=== PATIENT | female | born 1935 | race Caucasian/White ===

== ENCOUNTER 2019-06-17 22:52 | Inpatient (IN) | payer MEDICARE, OTHER ==
[~2019-06-17] VITALS: Ht 170.2 cm; Wt 72.6 kg
[2019-06-17 23:25] LABS: BASOPHILS 0.2 % (0-2); EOSINOPHILS 0 % (0-7); HEMOGLOBIN 13.1 g/dL (12-16); IMMATURE GRANULOCYTES 0.2 % (0-5); LYMPHOCYTES 9.9 % (15-50); MCH 31.5 pg (26.0-34.0); MCHC 33.6 g/dL (31.0-37.0); MCV 93.8 fL (80.0-100.0); MEAN PLATELET VOLUME 8.8 fL (7.4-10.4); MONOCYTES 5.6 % (2-11); NEUTROPHILS 84.1 % (40-80); PLATELET COUNT 201 10x3/uL (130-400); RBC 4.16 10x6/uL (4.00-5.40); RDW 13.5 % (11.5-14.5); WBC 9.2 10x3/uL (4.8-10.8)
[2019-06-17 23:35] LABS: APTT 28.9 SECONDS (22.8-39.4); INR 1.08 (0.85-1.17); PROTIME 13.5 SECONDS (11.6-15.0)
[2019-06-17 23:39] LABS: ALBUMIN 3.2 g/dL (3.4-5.0); BILIRUBIN - TOTAL 0.37 mg/dL (0.2-1.3); CALCIUM 8.9 mg/dL (8.5-10.1); CARBON DIOXIDE 26.4 mmol/L (21.0-32.0); CREATININE - SERUM 0.9 mg/dL (0.6-1.3); POTASSIUM - SERUM 4.4 mmol/L (3.5-5.1); PROTEIN - SERUM 7.5 g/dL (6.4-8.2)
[2019-06-17 23:48] LABS: THYROID STIMULATING HORMONE 0.99 uIU/mL (0.36-3.74); TROPONIN-I 0.022 ng/mL (0.000-0.060)
[2019-06-18] VITALS (7 sets, daily range): BP systolic 158–188; BP diastolic 50–77; BMI 25.1
--- NOTE | 2019-06-18 00:35 | NUR ---
ALERT AND ORIENTED. UP WITH ASSIST. STATES PAIN IS "MORE THAN OKAY" RIGHT NOW. DENIES NEEDS FOR PAIN MEDICINE. LEFT AC THAT HAS DRAINAGE TO DRESSING. FLUSHES WELL AND IS PATENT. DONIS CATHETER WITH DARK YELLOW URINE. CALL LIGHT IN REACH. CPOC.
--- NOTE | 2019-06-18 00:41 | NUR ---
ADMISSION ASSESSMENT COMPLETE.
[2019-06-18] MEDS ORDERED: PREMARIN0.625 MG PO (00:42)
[2019-06-18] MEDS ORDERED: ULTRAM50 MG PO (00:42)
[2019-06-18] MEDS ORDERED: ELIQUIS2.5 MG PO (00:43)
[2019-06-18] MEDS ORDERED: FUROSEMIDE40 MG PO (00:44)
[2019-06-18] MEDS ORDERED: TOPROL XL25 MG PO (00:44)
[2019-06-18] MEDS ORDERED: K-DUR20 MEQ PO (00:46)
[2019-06-18] MEDS ORDERED: BAYER ASPIRIN325 MG PO (00:47)
--- NOTE | 2019-06-18 07:56 | NUR ---
ALERT AND ORIENTED X4. BOWEL SOUNDS NOTED X4 WITH TENDERNESS NOTED TO EPIGASTRIC AREA ON PALPATION. DENIES ANY N/V AT THIS TIME. TELEMETRY INTACT AND HRRR. LUNGS CTA WITH CAP REFILL <3 SEC. FALL RISK PRECAUTIONS IN PLACE AND ENCOURAGED TO USE CALL LIGHT FOR ASSSIT
--- NOTE | 2019-06-18 19:15 | NUR ---
PATIENT ALERT AND ORIENTED WHEN ENTERING THE ROOM. STATES THAT HER IV IS BOTHERING HER. ON REDNESS OR SIGNS OF INFILTRATION NOTICED. GOOD BLOOD RETURN BUT PATIENT WANTS RESITED DUE TO DISCOMFORT. RESITED TO THE LEFT FOREARM X 1 ATTEMPT. 22G. RETURNED FLUIDS TO ORDERED RATE. PATIENT DENIES FURTHER NEEDS AT THIS TIME.
--- NOTE | 2019-06-18 21:40 | NUR ---
PATIENT REQUESTING PAIN MEDICINE. MORPHINE HAD BEEN DC'D EARLIER IN SHIFT BY DR. MONREAL. PAGED DR TO SEE IF PATIENT CAN HAVE ALTERNATIVE TO MORPHINE. DR. MONREAL STATED THAT IT WAS A MISTAKE AND TO RESTART THE PRIOR ORDER. ADMINISTERED MORPHINE. PATIENT TOLERATED WELL.
[2019-06-19] VITALS: BP 136/56
--- NOTE | 2019-06-19 01:35 | NUR ---
I have reviewed this patient and I concur with the Shift Assessment completed by the Licensed Practical Nurse today this shift.
[2019-06-19 04:00] VITALS: BP 129/45
--- NOTE | 2019-06-19 05:20 | NUR ---
KAYDEN WAIVER SIGNED
[2019-06-19 06:10] LABS: BASOPHILS 0.4 % (0-2); EOSINOPHILS 4.7 % (0-7); HEMATOCRIT 34.4 % (36.0-48.0); HEMOGLOBIN 11.2 g/dL (12-16); IMMATURE GRANULOCYTES 0.2 % (0-5); LYMPHOCYTES 32.9 % (15-50); MCH 30.9 pg (26.0-34.0); MCHC 32.6 g/dL (31.0-37.0); MEAN PLATELET VOLUME 8.9 fL (7.4-10.4); MONOCYTES 15.7 % (2-11); NEUTROPHILS 46.1 % (40-80); PLATELET COUNT 190 10x3/uL (130-400); RBC 3.62 10x6/uL (4.00-5.40); RDW 13.9 % (11.5-14.5)
[2019-06-19 06:22] LABS: INR 1.14 (0.85-1.17); PROTIME 14.1 SECONDS (11.6-15.0)
[2019-06-19 06:26] LABS: WBC 5.2 10x3/uL (4.8-10.8)
[2019-06-19 06:32] LABS: ALBUMIN 2.5 g/dL (3.4-5.0); ANION GAP 11.6 mmol/L (8-16); BILIRUBIN - TOTAL 0.35 mg/dL (0.2-1.3); CALCIUM 7.8 mg/dL (8.5-10.1); CARBON DIOXIDE 26.4 mmol/L (21.0-32.0); CREATININE - SERUM 0.8 mg/dL (0.6-1.3); MAGNESIUM - SERUM 1.8 mg/dL (1.8-2.4); PHOSPHOROUS 2.3 mg/dL (2.5-4.9); TROPONIN-I 0.06 ng/mL (0.000-0.060)
[2019-06-19 06:36] LABS: PROTEIN - SERUM 5.4 g/dL (6.4-8.2)
--- NOTE | 2019-06-19 07:28 | NUR ---
ALERT AND ORIENTED. LUNGS CLEAR BILATERALLY IN ALL MILLER. HEART SOUNDS S1 AND S2 HEARD IN ALL MILLER. BOWEL SOUNDS ACTIVE X 4. SKIN INTACT WITHOUT REDNESS. IV TO LFA PATENT WITHOUT REDNESS. DENIES PAIN. DENIES NEEDS. BED LOW. CALL HENDRICKS AND PERSONAL ITEMS IN REACH. SIGNED KAYDEN WAIVER. WILL CONTINUE TO MONITOR.
[2019-06-19 08:43] VITALS: BP 174/63
--- NOTE | 2019-06-19 10:23 | NUR ---
RESTING IN BED. DENIES NEEDS. WILL CONTINUE TO MONITOR.
[2019-06-19 11:53] VITALS: BP 175/74
--- NOTE | 2019-06-19 12:07 | NUR ---
EDUCATION PROVIDED ON NEED FOR URINE SAMPLE. SUPPLIES IN ROOM. VERBALIZED UNDERSTANDING.
--- NOTE | 2019-06-19 13:24 | NUR ---
RESTING IN BED. DENIES NEEDS. WILL CONTINUE TO MONITOR.
[2019-06-19 14:03] LABS: APPEARANCE CLEAR (CLEAR); BILIRUBIN NEGATIVE (NEGATIVE); COLOR STRAW (YELLOW); GLUCOSE NEGATIVE (NEGATIVE); KETONE NEGATIVE (NEGATIVE); NITRITE NEGATIVE (NEGATIVE); PROTEIN NEGATIVE (NEGATIVE); UROBILINOGEN NORMAL (NORMAL)
--- NOTE | 2019-06-19 14:11 | NUR ---
DR FLORES PLACED NEW ORDER FOR CELEBREX. PHARMACY CALLED TO NOTIFY NURSE THAT PATIENT ALLERGIC TO NSAIDS AND SULFA. GHULAM FISH NOTIFIED. CELEBREX HELD UNTIL FURTHER NOTICE PER GHULAM.
[2019-06-19 14:33] VITALS: BMI 25.0
[2019-06-19 15:16] VITALS: Ht 170.2 cm; Wt 72.6 kg
--- NOTE | 2019-06-19 16:36 | NUR ---
RESTING IN BED. DENIES NEEDS. WILL CONTINUE TO MONITOR.
[2019-06-19 16:55] VITALS: BP 164/77
--- NOTE | 2019-06-19 18:14 | NUR ---
RESTING IN BED. DENIES PAIN. DENIES NEEDS. BED LOW. CALL HENDRICKS AND PERSONAL ITEMS IN REACH. WILL CONTINUE TO MONITOR.
[2019-06-19 20:15] VITALS: BP 160/72
--- NOTE | 2019-06-19 22:45 | NUR ---
PT C/O PAIN IN HEAD, NECK, ABDOMEN, AND SHARP STABBING PAIN TO CHEST. STATES SHE'S HAVING AN ALLERGIC REACTION TO MEDICATION THAT MAY HAVE BEEN GIVEN EARLIER ON IN THE DAY.BP 188/72. OTHER VITALS ARE STABLE. REQUESTS TO TAKE HER HOME NITRO. RAPID CALLED.
--- NOTE | 2019-06-19 23:06 | NUR ---
7520-SPOKE WITH BERNICE GONZALEZ APN WITH ORDERS TO NOTIFY CARDIOLOGY. 0342-NOTIFIED CARDIOLOGY OF CARDIAC ENZYMES ORDER, EKG DONE, AND MORPHINE WAS GIVEN. DR. ORLANDO HAD NO NEW ORDERS AT THIS TIME. PT STATES THAT THE MORPHINE IS HELPING.
[2019-06-20 00:03] LABS: CKMB 0.7 U/L (0.0-3.6); CREATINE KINASE 95 UL (21-215); TROPONIN-I 0.019 ng/mL (0.000-0.060)
[2019-06-20 00:47] VITALS: BP 178/68
[2019-06-20 05:14] VITALS: BP 165/63
[2019-06-20 06:13] LABS: BASOPHILS 0.3 % (0-2); EOSINOPHILS 3.6 % (0-7); HEMOGLOBIN 11.9 g/dL (12-16); LYMPHOCYTES 26.6 % (15-50); MCH 31.1 pg (26.0-34.0); MCHC 33.1 g/dL (31.0-37.0); MEAN PLATELET VOLUME 8.9 fL (7.4-10.4); MONOCYTES 15.9 % (2-11); NEUTROPHILS 53.6 % (40-80); PLATELET COUNT 190 10x3/uL (130-400); RBC 3.83 10x6/uL (4.00-5.40); RDW 13.7 % (11.5-14.5)
[2019-06-20 06:24] LABS: WBC 6.7 10x3/uL (4.8-10.8)
--- NOTE | 2019-06-20 06:38 | NUR ---
I have reviewed this patient and I concur with the Shift Assessment completed by the Licensed Practical Nurse today this shift.
[2019-06-20 07:19] LABS: CALC OSMOLALITY 283 mosm/kg (275-300); CALCIUM 7.9 mg/dL (8.5-10.1); CHLORIDE - SERUM 108 mmol/L (98-107); CKMB 0.9 U/L (0.0-3.6); CREATINE KINASE 94 UL (21-215); CREATININE - SERUM 0.7 mg/dL (0.6-1.3); GLUCOSE 95 mg/dL (74-106); POTASSIUM - SERUM 4.2 mmol/L (3.5-5.1); SODIUM 143 mmol/L (136-145); UREA NITROGEN 9 mg/dL (7-18); eGFR NON AFRICAN AMERICAN 85 mL/min (90-120)
[2019-06-20 07:21] LABS: TROPONIN-I < 0.017 ng/mL (0.000-0.060)
--- NOTE | 2019-06-20 07:44 | NUR ---
ALERT AND ORIENTED. LUNGS CLEAR BILATERALLY. HEART SOUNDS S1 AND S2 HEARD IN ALL MILLER. BOWEL SOUNDS ACTIVE X 4. SKIN INTACT WITHOUT REDNESS. IV TO LFA PATENT WITHOUT REDNESS. SPOKE WITH GHULAM FISH ABOUT D/C PATIENT'S FLUIDS D/T SWELLING AND CONTINUING PATIENT HOME BP MEDICATIONS. FLUIDS DC'D PER ORDER AND HOME BP MED ADDED TO MAR. PATIENT DENIES NEEDS AT THIS TIME. BED LOW. CALL HENDRICKS AND PERSONAL ITEMS IN REACH. WILL CONTINUE TO MONITOR.
[2019-06-20 08:37] VITALS: BP 199/76
--- NOTE | 2019-06-20 09:16 | NUR ---
BP 199/76. PAIN LEVEL 8/10. PRN MORPHINE GIVEN. BP MEDICATION GIVEN. WILL REASSESS BP.
--- NOTE | 2019-06-20 09:30 | NUR ---
EGG CRATE MATTRESS TOPPER PLACED ON BED AND WARM PACK GIVEN FOR NECK AND BACK PAIN. DENIES NEEDS.
--- NOTE | 2019-06-20 10:10 | MORECARE ---
CASE MANAGEMENT DISCHARGE SUMMARY PATIENT: KIRSTY RODRÍGUEZ UNIT: [id number] ADM DATE: 06/17/19 AGE: 83 : 36 SEX: F ROOM/BED: D.2225 AUTHOR: ELENA MALIK PHYSICIAN: REFERRING PHYSICIAN: RENEE MONREAL MD DATE OF SERVICE: 06/20/19 Discharge Plan Patient Name: KIRSTY RODRÍGUEZ [facility] : 1935 Planned Disposition: Home Anticipated Discharge Date: 06/21/19 Discharge Date: Expected LOS: 4 Initial Reviewer: [email or web address] Initial Review Date: 06/20/2019 Generated: 06/20/19 11:09 am Patient Name: KIRSTY RODRÍGUEZ Page [id number] at 1010 All edits/amendments must be made on the electronic document DICTATION DATE: 06/20/19 1009 LYE BATH OPERATOR: MASSIEL 06/20/19 1009 RPT#: [id number] DC DATE: STATUS: ADM IN [facility] [address] [place] [address] END OF REPORT
--- NOTE | 2019-06-20 10:17 | MORECARE ---
CASE MANAGEMENT DISCHARGE SUMMARY PATIENT: KIRSTY NOGUEIRA UNIT: [id number] ADM DATE: 06/17/19 AGE: 83 : 36 SEX: F ROOM/BED: D.2225 AUTHOR: HELENA,DOC PHYSICIAN: REFERRING PHYSICIAN: RENEE MONREAL MD DATE OF SERVICE: 06/20/19 Discharge Plan Patient Name: KIRSTY NOGUEIRA Facility: [facility]:[place] : 1935 Planned Disposition: Home Anticipated Discharge Date: 06/21/19 Discharge Date: Expected LOS: 4 Initial Reviewer: [email or web address] Initial Review Date: 06/20/2019 Generated: 06/20/19 11:17 am Comments DCP- Discharge Planning Updated by [email or web address]: Jeanne Leblanc on 06/20/19 9:[address] Patient Name: KIRSTY NOGUEIRA Admission Status: ER Accout number: [id number] Admission Date: 06-17-2019 : 1935 Admission Diagnosis: Attending: RENEE MONREAL Current LOS: 3 Anticipated DC Date: 06-21-2019 Planned Disposition: Home Primary Insurance: MEDICARE A & B Discharge Planning Comments: CM met with patient to complete initial dc planning assessment. CM educated patient on the CM role and verbal consent given by patient to complete assessment. Patient lives at home with her daughter. She states she is independent with all ADL's and AIDL's. At discharge patient plans to return and feels this is a safe discharge. CM discussed availability of home health, rehab services, and medical equipment. Patient denied known discharge needs at this time. CM will continue to follow and will assist as needed with dc plans/needs. [employer] Operations Consultant: Jeanne Leblanc DCPIA - Discharge Planning Initial Assessment Updated by [email or web address]: Jeanne Leblanc on 06/20/19 10:10 am * Is the patient Alert and Oriented? Yes * How many steps to enter\exit or inside your home? 3/0 * PCP Dr. Gomes * Pharmacy [facility] in [place] * Preadmission Environment Acute Care Facility * Facility Name [facility] * ADLs Independent * Equipment None * List name and contact numbers for known caregivers / representatives who currently or will assist patient after discharge: Toro Nogueira - DTR - H [phone] C [phone] * Verbal permission to speak to the caregivers and representatives has been obtained from the patient. Yes * Community resources currently utilized None * Additional services required to return to the preadmission environment? No * Can the patient safely return to the preadmission environment? Yes * Has this patient been hospitalized within the prior 30 days at any hospital? No Coverage Notice Reviewer: [id number] Terra Leblanc Notice Issued Date-Time: 06/20/2019 10:11 Notice Type: IM Discharge Notice Notice Delivered To: Patient Relationship to Patient: Self Antisqueak Filler Name: Delivery Method: HAND - Hand Delivered Senia Days: Prior Verbal Notification: Recipient Understood Notice: Yes Recipient Signature: Yes Med Rec Note Co-signed by Attending: Coverage Notice Comment: IMM explained, signed, given, copy placed in MR Last DP export: 06/20/19 9:10 a Patient Name: KIRSTY NOGUEIRA Page [phone] at 1017 All edits/amendments must be made on the electronic document DICTATION DATE: 06/20/19 1016 SPORTS NUTRITIONIST: DM 06/20/19 1016 RPT#: [id number] DC DATE: STATUS: ADM IN [facility] [address] [place] [address] END OF REPORT
[2019-06-20 11:41] VITALS: BP 182/82
--- NOTE | 2019-06-20 11:41 | NUR ---
BP 166/57 AFTER PRN CLONIDINE.
[2019-06-20 11:55] LABS: CKMB 1.1 U/L (0.0-3.6); CREATINE KINASE 102 UL (21-215)
[2019-06-20 11:57] LABS: TROPONIN-I < 0.017 ng/mL (0.000-0.060)
--- NOTE | 2019-06-20 12:17 | NUR ---
RESTING IN BED. DENIES NEEDS. WILL CONTINUE TO MONITOR.
[2019-06-20 15:40] VITALS: BP 184/78
--- NOTE | 2019-06-20 15:57 | NUR ---
PATIENT BP 184/76. WILL GIVE PRN CLONIDINE.
--- NOTE | 2019-06-20 16:41 | NUR ---
BP 172/75 AFTER PRN CLONIDINE. WILL REASSESS IN 30 MINUTES.
--- NOTE | 2019-06-20 18:00 | NUR ---
PATIENT STATES ALLERGIC TO LISINOPRIL AND NORVASC. STATES GETS NAUSEAS AND HEADACHES. DR RAH JACKMAN. WAITING CALL BACK. MEDS HELD.
--- NOTE | 2019-06-20 18:22 | NUR ---
SPOKE WITH DR FLORES IN ROOM WITH PATIENT. STATED DC LISINOPRIL AND NORVASC. N/O FOR HYDRALAZINE 50MG TID.
--- NOTE | 2019-06-20 20:00 | NUR ---
ASSESSMENT PER FLOWSHEET. SALINE LOCK TO LEFT FOREARM. SITE CLEAR. TELM. SR W/HR 76-80.
[2019-06-20 20:43] VITALS: BP 161/47
--- NOTE | 2019-06-20 21:00 | NUR ---
MEDS GIVEN PER MAR.
--- NOTE | 2019-06-21 | NUR ---
EYES CLOSED RESPIRATIONS WITH EASE AND UNLABORED.
--- NOTE | 2019-06-21 00:30 | NUR ---
AWAKE WALKING AROUND IN ROOM REQUESTING IV BE REMOVED BECAUSE SHE IS GOING HOME. ATTEMPT TO REORIENT PATIENT AND SHE BECAME VERBALLY ABUSIVE. ATTEMPT TO CALL HER DAUGHTER FROM PHONE NUMBER GIVEN ON FACE SHEET. WRONG NUMBER. LOOKED UP PT'S DAUGHTER ON HER PHONE AND SHE HAD ALREADY CALLED HER. DAUGHTER STATED SHE WAS NOT GOING TO TELECOMMUNICATIONS PROJECT MANAGER AND TO WAIT UNTIL TOMORROW.
[2019-06-21 01:15] VITALS: BP 132/54
--- NOTE | 2019-06-21 02:47 | NUR ---
RESTING IN BED SR UP X2 CALL LIGHT WITHIN REACH PT CALMIER AT THIS TIME.
[2019-06-21 05:02] VITALS: BP 174/60
[2019-06-21 06:16] LABS: BASOPHILS 0.1 % (0-2); EOSINOPHILS 0.6 % (0-7); HEMATOCRIT 35.3 % (36.0-48.0); HEMOGLOBIN 11.8 g/dL (12-16); IMMATURE GRANULOCYTES 0.2 % (0-5); LYMPHOCYTES 17.7 % (15-50); MCH 30.7 pg (26.0-34.0); MCHC 33.4 g/dL (31.0-37.0); MEAN PLATELET VOLUME 8.9 fL (7.4-10.4); MONOCYTES 14.9 % (2-11); NEUTROPHILS 66.5 % (40-80); PLATELET COUNT 189 10x3/uL (130-400); RBC 3.84 10x6/uL (4.00-5.40); RDW 13.3 % (11.5-14.5)
[2019-06-21 06:44] LABS: CALC OSMOLALITY 284 mosm/kg (275-300); CALCIUM 8.5 mg/dL (8.5-10.1); CARBON DIOXIDE 28.9 mmol/L (21.0-32.0); CHLORIDE - SERUM 106 mmol/L (98-107); CREATININE - SERUM 0.7 mg/dL (0.6-1.3); GLUCOSE 126 mg/dL (74-106); POTASSIUM - SERUM 3.9 mmol/L (3.5-5.1); SODIUM 143 mmol/L (136-145); UREA NITROGEN 8 mg/dL (7-18); eGFR NON AFRICAN AMERICAN 85 mL/min (90-120)
[2019-06-21 06:45] LABS: MCV 91.9 fL (80.0-100.0); WBC 8.7 10x3/uL (4.8-10.8)
[2019-06-21 08:17] VITALS: BP 165/59
--- NOTE | 2019-06-21 11:08 | EC ---
PATIENT:KIRSTY RODRÍGUEZ DATE OF SERVICE: 06/17/19 SEX: F MEDICAL RECORD: [id number] DATE OF : 37 LOCATION:D.MS Kim222 AGE OF PATIENT: 83 ADMISSION DATE: 06/17/19 REFERRING PHYSICIAN: INTERPRETING PHYSICIAN: ALAN VÁSQUEZ MD ECHOCARDIOGRAM REPORT ECHO CHARGES 4 ECHO COMPLETE Date: 06/19/19 CLINICAL DIAGNOSIS: CHF ECHOCARDIOGRAPHIC MEASUREMENTS (adult normal given) AC root (d.<3.7cm) 2.9 cm LV Septum d (<1.2 cm> 1.0 cm Valve Excursion 1.6 cm LV Septum (systole) 1.4 cm Left Atria (s.<4.0cm> 3.9 cm LVPW d(<1.2cm) 0.9 cm RV (d.<2.3cm) 3.3 cm LVPW (sytole) 1.1 cm LV diastole(<5.6CM) 4.6 cm MV E-F(>70mm/sec) cm LV systole 3.2 cm LVOT Diameter 1.7 cm MV exc.(>10mm) cm Est.ejection fraction (50-75%) % DOPPLER: LVIT cm/sec A 82 cm/sec E 111 cm/sec LA cm/sec RVSP 49.1 mmHg LVOT 92 cm/sec AOP1/2T m/s Asc. Ao 146 cm/sec RVOT 69 cm/sec RA cm/sec PA 79 cm/sec AV Gradient Peak 8.6 mmHg AV Mean 4.1 mmHg AV Area 1.6 cm MV Gradient Peak 6.4 mmHg MV Mean 3.0 mmHg MV Area cm COMMENTS: School Psychology Professor: Huber SORTO Director Agricultural Services: 3 Dr. Carrero TAPE# PACS Pericardial Effusion N DATE OF SERVICE: 06/20/2019 Adequate 2-D echo, color-flow and spectral Doppler, and M-mode. No LVH. LV internal dimensions are normal. Wall motion is normal. EF is greater than 55%. Aortic valve is tricuspid. No evidence of stenosis by Doppler interrogation. Left atrium is normal. Mitral valve shows no prolapse. Trace MR. Right-sided chambers grossly normal. Trace TR. TRANSINT:[id number] Voice Confirmation ID: [id number] DOCUMENT ID: [id number] ECHOCARDIOGRAM REPORT [id number] KIRSTY RODRÍGUEZ ALAN VÁSQUEZ MD at 1108 CC: [id number] DICTATION DATE: 06/20/19 1444 YARD SUPERVISOR: 06/21/19 0010 ADM IN [place] [address] [place] [address]
[2019-06-21] MEDS ORDERED: HYDRALAZINE HCL50 MG PO (11:55)
[2019-06-21 12:03] VITALS: BP 124/60
--- NOTE | 2019-06-21 12:28 | NUR ---
PT RESTING IN BED. NO SIGNS OF DISTRESS. ON TELEMETRY 61 SR. COMPLAINS OF PAIN IN NECK AND HEAD. MEDICATIONS GIVEN. DENIES ANY FURTHER NEED AT THIS TIME. CALL LIGHT IN REACH. BED LOW POSITION. NO FAMILY AT BEDSIDE AT THIS TIME.
--- NOTE | 2019-06-21 12:55 | MORECARE ---
CASE MANAGEMENT DISCHARGE SUMMARY PATIENT: KIRSTY NOGUEIRA UNIT: [id number] ADM DATE: 06/17/19 AGE: 83 : 36 SEX: F ROOM/BED: D.2225 AUTHOR: ELENA MALIK PHYSICIAN: REFERRING PHYSICIAN: RENEE MONREAL MD DATE OF SERVICE: 06/21/19 Discharge Plan Patient Name: KIRSTY NOGUEIRA Facility: [facility]:[place] : 1935 Planned Disposition: Home Anticipated Discharge Date: 06/21/19 Discharge Date: Expected LOS: 4 Initial Reviewer: [email or web address] Initial Review Date: 06/20/2019 Generated: 06/21/19 1:54 pm Comments DCP- Discharge Planning Updated by [email or web address]: Jeanne Leblanc on 06/21/19 11:[address] Patient Name: KIRSTY NOGUEIRA Encounter No: [id number] : 1935 Primary Insurance: MEDICARE A & B Anticipated DC Date: 06-21-2019 Planned Disposition: Home External Planned Provider: : DCP follow-up note: Patient and family in agreement with discharge plan. No changes to plan. She refuses home health for PT or OT. States she has a messager and bio freeze at the home. I instructed her if she changed her mind to notify her primary care doctor. States her daughter is on her way to take her home. Case management will follow and assist as needed. Jeanne Leblanc DCP- Discharge Planning Updated by [email or web address]: Jeanne Leblanc on 06/20/19 9:[address] Patient Name: KIRSTY NOGUEIRA Admission Status: ER Accout number: [id number] Admission Date: 06-17-2019 : 1935 Admission Diagnosis: Attending: RENEE MONREAL Current LOS: 3 Anticipated DC Date: 06-21-2019 Planned Disposition: Home Primary Insurance: MEDICARE A & B Discharge Planning Comments: CM met with patient to complete initial dc planning assessment. CM educated patient on the CM role and verbal consent given by patient to complete assessment. Patient lives at home with her daughter. She states she is independent with all ADL's and AIDL's. At discharge patient plans to return and feels this is a safe discharge. CM discussed availability of home health, rehab services, and medical equipment. Patient denied known discharge needs at this time. CM will continue to follow and will assist as needed with dc plans/needs. College Basketball Coach: Jeanne Benji DCPIA - Discharge Planning Initial Assessment Updated by [email or web address]: Jeanne Leblanc on 06/20/19 10:10 am * Is the patient Alert and Oriented? Yes * How many steps to enter\exit or inside your home? 3/0 * PCP Dr. Gomes * Pharmacy [facility] in [place] * Preadmission Environment Acute Care Facility * Facility Name [facility] * ADLs Independent * Equipment None * List name and contact numbers for known caregivers / representatives who currently or will assist patient after discharge: Toro Nogueira - DTR - H [phone] C [phone] * Verbal permission to speak to the caregivers and representatives has been obtained from the patient. Yes * Community resources currently utilized None * Additional services required to return to the preadmission environment? No * Can the patient safely return to the preadmission environment? Yes * Has this patient been hospitalized within the prior 30 days at any hospital? No Coverage Notice Reviewer: [id number] Terra Leblanc Notice Issued Date-Time: 06/20/2019 10:11 Notice Type: IM Discharge Notice Notice Delivered To: Patient Relationship to Patient: Self Computer Forensics Examiner Name: Delivery Method: HAND - Hand Delivered Senia Days: Prior Verbal Notification: Recipient Understood Notice: Yes Recipient Signature: Yes Med Rec Note Co-signed by Attending: Coverage Notice Comment: IMM explained, signed, given, copy placed in MR Reviewer: [id number] Terra Leblanc Notice Issued Date-Time: 06/21/2019 12:44 Notice Type: Patient Choice Letter Notice Delivered To: Patient Relationship to Patient: Self Computer Forensics Examiner Name: Delivery Method: HAND - Hand Delivered Senia Days: Prior Verbal Notification: Recipient Understood Notice: Yes Recipient Signature: Yes Med Rec Note Co-signed by Attending: Coverage Notice Comment: Refused home health or OP PT OT Last DP export: 06/20/19 9:17 a Patient Name: KIRSTY NOGUEIRA Page 33495 at 1255 All edits/amendments must be made on the electronic document DICTATION DATE: 06/21/19 1640 HEAD PAPER TESTER: DM 06/21/19 1254 RPT#: [id number] DC DATE: STATUS: ADM IN [facility] [address] [place] [address] END OF REPORT
--- NOTE | 2019-06-21 14:08 | NUR ---
DISCHARGE INSTRUCTIONS GIVEN. SEEMS TO UNDERSTAND INSTRUCTIONS. IV ALREADY OUT. TELEMETRY OFF AND RETURNED. LEFT WITH HOSPITAL STAFF TO GO HOME IN PERSONAL RIDE WITH FAMILY. NO SIGNS OF DISTRESS.
--- NOTE | 2019-06-22 18:23 | DS ---
PATIENT:KIRSTY RODRÍGUEZ :37 MEDICAL RECORD: [id number] DISCHARGE SUMMARY ADMISSION DATE: 06/17/19 DISCHARGE DATE: 06/21/19 PRINCIPAL DIAGNOSES: 1. Splenic infarction 2. Anemia. OTHER DIAGNOSES: Include hypertension, coronary artery disease, hyperlipidemia, arthritis, history of CABG, atrial fibrillation, hypercholesterolemia. The patient reportedly was recently diagnosed with atrial fibrillation per Holter monitor or by Dr. Gomes. Anyhow, she may have had an embolism to the splenic artery. The patient was transferred from [place]. She was transferred here. Seen by the hospitalist service as well as the cardiology service. Dismissed home on anticoagulation. HOSPITAL COURSE: My plan was to treat her pain from the splenic infarction with a narcotic analgesia as well as anti-inflammatories. Reportedly, the patient had a Holter monitor placed by her primary care physician recently and it revealed atrial fibrillation, although we did not have any of the strips to confirm this here at the hospital. In the hospital, she was in a sinus rhythm with a first-degree AV block. She was complaining of terrible neck pain as well as the worst headache of her life. This revealed mild multilevel cervical spondylosis with facet arthrosis and also mild degenerative grade I anterolisthesis of C3 on C4. CT of the head was performed due to the worst headache of her life and it revealed mild chronic microvascular ischemic changes. The patient can see me on a p.r.n. basis. TRANSINT:[id number] Voice Confirmation ID: [id number] DOCUMENT ID: [id number] RENEE MONREAL MD at 1823 CC: [id number] DICTATION DATE: 06/21/191699 PLATE STACKER HAND: 06/22/1957 DIS IN 06/21/[address] [facility] [address] [place] [id number]
--- NOTE | 2019-06-23 16:37 | MORECARE ---
CASE MANAGEMENT DISCHARGE SUMMARY PATIENT: KIRSTY NOGUEIRA UNIT: [id number] ADM DATE: 06/17/19 AGE: 83 : 36 SEX: F ROOM/BED: D.2225 AUTHOR: ELENA MALIK PHYSICIAN: REFERRING PHYSICIAN: RENEE MONREAL MD DATE OF SERVICE: 06/23/19 Discharge Plan Patient Name: KIRSTY NOGUEIRA Facility: [facility]:[place] : 1935 Planned Disposition: Home Anticipated Discharge Date: 06/21/19 Discharge Date: 06/21/2019 Expected LOS: 4 Initial Reviewer: [email or web address] Initial Review Date: 06/20/2019 Generated: 06/23/19 5:36 pm Comments DCP- Discharge Planning Updated by [email or web address]: Jeanne Leblanc on 06/21/19 11:[address] Patient Name: KIRSTY NOGUEIRA Encounter No: [id number] : 1935 Primary Insurance: MEDICARE A & B Anticipated DC Date: 06-21-2019 Planned Disposition: Home External Planned Provider: : DCP follow-up note: Patient and family in agreement with discharge plan. No changes to plan. She refuses home health for PT or OT. States she has a messager and bio freeze at the home. I instructed her if she changed her mind to notify her primary care doctor. States her daughter is on her way to take her home. Case management will follow and assist as needed. Jeanne Leblanc DCP- Discharge Planning Updated by [email or web address]: Jeanne Leblanc on 06/20/19 9:[address] Patient Name: KIRSTY NOGUEIRA Admission Status: ER Accout number: [id number] Admission Date: 06-17-2019 : 1935 Admission Diagnosis: Attending: RENEE MONREAL Current LOS: 3 Anticipated DC Date: 06-21-2019 Planned Disposition: Home Primary Insurance: MEDICARE A & B Discharge Planning Comments: CM met with patient to complete initial dc planning assessment. CM educated patient on the CM role and verbal consent given by patient to complete assessment. Patient lives at home with her daughter. She states she is independent with all ADL's and AIDL's. At discharge patient plans to return and feels this is a safe discharge. CM discussed availability of home health, rehab services, and medical equipment. Patient denied known discharge needs at this time. CM will continue to follow and will assist as needed with dc plans/needs. Site Damage Prevention Technician: Jeanne Leblanc DCPIA - Discharge Planning Initial Assessment Updated by [email or web address]: Jeanne Leblanc on 06/20/19 10:10 am * Is the patient Alert and Oriented? Yes * How many steps to enter\exit or inside your home? 3/0 * PCP Dr. Gomes * Pharmacy [facility] in [place] * Preadmission Environment Acute Care Facility * Facility Name [facility] * ADLs Independent * Equipment None * List name and contact numbers for known caregivers / representatives who currently or will assist patient after discharge: Toro Nogueira - DTR - H [phone] C [phone] * Verbal permission to speak to the caregivers and representatives has been obtained from the patient. Yes * Community resources currently utilized None * Additional services required to return to the preadmission environment? No * Can the patient safely return to the preadmission environment? Yes * Has this patient been hospitalized within the prior 30 days at any hospital? No Coverage Notice Reviewer: [id number] Terra Leblanc Notice Issued Date-Time: 06/20/2019 10:11 Notice Type: IM Discharge Notice Notice Delivered To: Patient Relationship to Patient: Self Accounting Machine Operator Name: Delivery Method: HAND - Hand Delivered Senia Days: Prior Verbal Notification: Recipient Understood Notice: Yes Recipient Signature: Yes Med Rec Note Co-signed by Attending: Coverage Notice Comment: IMM explained, signed, given, copy placed in MR Reviewer: [id number] Terra Leblanc Notice Issued Date-Time: 06/21/2019 12:44 Notice Type: Patient Choice Letter Notice Delivered To: Patient Relationship to Patient: Self Accounting Machine Operator Name: Delivery Method: HAND - Hand Delivered Senia Days: Prior Verbal Notification: Recipient Understood Notice: Yes Recipient Signature: Yes Med Rec Note Co-signed by Attending: Coverage Notice Comment: Refused home health or OP PT OT Last DP export: 06/21/19 11:55 a Patient Name: KIRSTY NOGUEIRA Page [phone] at 1637 All edits/amendments must be made on the electronic document DICTATION DATE: 06/23/191635 GERIATRIC PHYSICAL THERAPIST: MASSIEL 06/23/19 163 RPT#: [id number] DC DATE:06/21/19 STATUS: DIS IN [facility] [address] [facility] [place] [address] END OF REPORT
== END 2019-06-21 14:09 | disposition home or self-care (01) | DRG 299 ==
LOC: D.ER 22:52 → D.MS 23:14
PROVIDERS: Family Medicine; Internal Medicine Nephrology; ADMIT Surgery; ATTEND Surgery
DX: I74.8 Embolism and thrombosis of other arteries (principal); I50.33 Acute on chronic diastolic (congestive) heart failure; I10 Essential (primary) hypertension; I25.10 Atherosclerotic heart disease of native coronary artery without angina pectoris; I48.91 Unspecified atrial fibrillation